=== PATIENT | female | born 1975 | race Asian ===

== ENCOUNTER 2023-06-07 22:33 | Emergency (ER) | payer OTHER, SELFPAY ==
[2023-06-07 22:34] VITALS: BP 122/77; PULSE 81; RESP 16; TEMP 36.2; O2SAT 100; BMI 28.1
--- NOTE | 2023-06-07 23:01 | EDS_ITS ---
HPI History of Present Illness Chief Complaint: Chest Pain Informant: patient and spouse/S.O. Narrative Narrative: 47-year-old female states she has been having midsternal chest pain for the past 4 weeks. She states she first noticed it after chiropractic treatment in which case she did some type of external rotation of her shoulder and seem to stretch the muscles in her back and maybe her chest a lot. She has noticed that pushing on her sternum is painful, moving her arm is more painful, but yet it feels like it is in the inside. Sometimes pain more painful to breathe. Sometimes feels out of breath. When she exerts herself she sometimes feels like things are worse and feels like her heart is pounding which is when she feels like she is a little out of breath. No near-syncope or syncope. No nausea, vomiting, diarrhea. She denies any palpitations other than stated above. No leg pain or swelling. No history of heart problems that she knows of, no history of PE or other thromboembolic disease. She denies any cough or recent illness. She st ates pretty much the pain has been there continuously for the past 4 weeks, when she takes aspirin it transiently improves, so she has been doing that more lately. She saw her doctor and had an EKG, said it was okay and then offered her a stress test but she declined at that time but today the pain was worse, but no other new symptoms today. [facility] Medical History (Updated 06/08/23 @ 00:[address] Rufus Munroe MD) Anxiety Gallstones Hiatal hernia Ovarian cyst Medical History no medical history Home Medications alprazolam 0.5 mg tablet 0.5 mg PO TID PRN anxiety 06/08/23 [History Last Taken Unknown] fluvoxamine 100 mg tablet 200 mg PO DAILY 06/08/23 [History Last Taken Unknown] Allergy/AdvReac Type Severity Reaction Status Date / Time No Known Allergies Allergy Verified 06/07/23 22:34 Social History Smoking Status: Never smoker ROS ROS ED Constitutional Constitutional ED: Denies chills or fever(s) Eyes Eyes: Denies change in vision or diplopia ENT ENT ED: Denies rhinorrhea or sore throat Cardiovascular Cardiovascular: Reports chest pain and pounding heartbeat; Denies leg edema, lightheadedness, orthopnea, palpitations, paroxysmal nocturnal dyspnea, radiating jaw, neck or arm pain or syncope Respiratory/Chest Respiratory/Chest: Reports dyspnea and dyspnea on exertion; Denies cough, orthopnea or paroxysmal nocturnal dyspnea Gastrointestinal Gastrointestinal: Denies abdominal pain, diarrhea, nausea or vomiting Genitourinary Genitourinary ED: Denies dysuria or hematuria Musculoskeletal Musculoskeletal: Denies back pain or neck pain Integumentary Denies abscess or rash Neurologic Neurologic: Denies headache(s), paresthesias or weakness Psychiatric Psychiatric: Denies anxiety or suicidal thoughts EXAM Physical Exam Const Vital Signs: 06/07/23 22:34 06/07/23 22:41 06/07/23 23:04 Temperature 97.1 F L Temperature Source Temporal Pulse Rate 81 Respiratory Rate 16 Respiratory Effort Short of Breath Blood Pressure 122/77 H Blood Pressure Mean 92 Pulse Ox 100 100 Oxygen Delivery Method Room Air 06/07/23 23:33 Temperature Temperature Source Pulse Rate 77 Respiratory Rate 20 H Respiratory Effort Blood Pressure 99/65 Blood Pressure Mean 76 Pulse Ox 99 Oxygen Delivery Method Positive well nourished and well developed General Appearance ED: well developed and NAD HEENT Reports moist mucous membranes normocephalic and atraumatic Eyes PERRL and EOMs intact bilaterally Neck full ROM and supple Chest Wall inspection of chest normal Chest: tenderness sternum (Mid sternal left costochondral junction, reproduces some of her pain) Resp normal respiratory effort and clear to auscultation bilaterally Cardio regular rate, regular rhythm and no murmurs GI non-tender and non-distended Auscultation: normoactive bowel sounds Palpation: soft Back/Spine no CVA tenderness General Back: other FROM Extremity normal to inspection General Extremety ED: Negative for edema, pulses abnormal or tenderness General Extremity: Negative for edema or pulses abnormal Neuro oriented x3, CN's II-XII intact bilaterally and no sensory deficits noted Sensorium / Orientation: awake and alert Motor Exam: strength 5/5 throughout Skin no rashes or lesions noted and no wounds Heart Score History: Slightly/Non-Suspicious ECG: Nonspecific Repolarization Age: >45 - <65 years Risk Factors: No Risk Factors Troponin: </= Normal Limit Score: 2 MDM MDM MDM Narrative Medical decision making narrative: Differential includes musculoskeletal etiologies, less likely to be pulmonary embolus, especially with a PERC score of 0 so no further work-up for pulmonary embolus is indicated emergently at this time for the symptoms, and less likely to be cardiac etiology since she has had pain every day for 1 month. Her EKG shows some nonspecific ST-T wave abnormalities in the inferolateral leads, her troponin however is in single digits, at 4, ruling out acute coronary syndrome at this time. The rest of her labs are only remarkable for mild anemia that is normocytic, this can be worked up as an outpatient if needed. Chest x-ray 2 views of my interpretation normal, radiology in agreement. She was given ibuprofen instructions for supportive care and follow-up. Lab Data Attestation: I reviewed the patient's lab results. Labs: Laboratory Results - last 24 hr 06/07/23 22:44 WBC 7.3 RBC 3.64 L Hgb 11.1 L Hct 34.7 L MCV 95.3 MCH 30.5 MCHC 32.0 RDW Std Deviation 42.4 RDW Coeff of Sam 12.0 Plt Count 297 MPV 9.4 Immature Gran % (Auto) 0.100 Neut % (Auto) 50.1 Lymph % (Auto) 41.9 H [place] % (Auto) 6.3 Eos % (Auto) 1.2 Baso % (Auto) 0.4 Absolute Neuts (auto) 3.6 Absolute Lymphs (auto) 3.04 Nucleated RBC % 0 Sodium 138 Potassium 3.7 Chloride 108 H Carbon Dioxide 27.0 Anion Gap 3 L BUN 16 Creatinine 0.82 Estim Creat Clear Calc 74.03 Est GFR (MDRD) Af Amer 96 Est GFR (MDRD) Non-Af 79 BUN/Creatinine Ratio 19.4 Glucose 98 Calcium 8.7 Troponin I High Sens 4 Radiography Diagnostic Testing: Clinical Impression(s) from Imaging Studies Chest X-Ray 06/07/23 23:10 IMPRESSION: Normal x-ray examination of the chest. Electronically Signed: Michael Suazo MD at 23:29 EDT , Rhythm Strip Rhythm Strip: Sinus Rhythm Rate: 77 Ectopy: None EKG Initial EKG: Attestation: I personally reviewed and interpreted this EKG as follows: Interpretation: Sinus Rhythm, No Acute Injury Pattern and Non-Specific ST Changes (inf-lat) Prior: No Prior Discharge Plan Triage Chief Complaint: Chest Pain ED Provider: Rufus Munroe Dx/Rx/DC Orders Clinical Impression: Anemia, normocytic normochromic, Chest pain, unspecified Instructions: ED Chest Pain, Noncardiac Prescriptions: No Action alprazolam 0.5 mg tablet 0.5 mg PO TID PRN (Reason: anxiety) Patient Comments: TAKE ONE TABLET BY MOUTH THREE TIMES DAILY fluvoxamine 100 mg tablet 200 mg PO DAILY Primary Care Provider: Navdeep Tarango Referrals: Navdeep Tarango MD [Primary Care Provider] - 1 Week if not improving Activity Restrictions/Additional Instructions: Consider taking Aleve or ibuprofen every day for the discomfort for the next week. Disposition Disposition: Home, Self Care
[2023-06-07 23:04] VITALS: O2SAT 100
--- NOTE | 2023-06-07 23:10 | RAD_ITS ---
STUDY: X-RAY CHEST REASON FOR EXAM: Female, 47 years old. chest pain TECHNIQUE: PA and lateral views of the chest. COMPARISON: None. FINDINGS: The lungs are clear and expanded. There is no demonstrated pleural abnormality. Normal size heart. Normal mediastinum and elvia. Normal visualized pulmonary arteries. Normal visualized aortic arch and descending thoracic aorta. There is a levoscoliosis of the thoracic spine. Normal visualized ribs, clavicles, and shoulders. There is no demonstrated abnormality of the visualized soft tissue structures of the upper abdomen. RAD/Chest PA and Lateral IMPRESSION: Normal x-ray examination of the chest. Electronically Signed: Michael Suazo MD at 23:29 EDT ,
[2023-06-07 23:13] LABS: Absolute Lymphocyte Count 3.04 X10^3/uL (0.83-4.51); Absolute Neutrophil Count 3.6 X10^3/uL (2.0-7.7); Basophil# 0.03 X10^3/uL; Basophil% 0.4 % (0-1); Eosinophil# 0.09 X10^3/uL; Eosinophils% 1.2 % (0-5); Hematocrit 34.7 % (37-47); Hemoglobin 11.1 g/dL (12.0-15.0); Lymphocyte # 3.04 X10^3/ul (0.83-4.51); Lymphocyte % 41.9 % (19-41); Mean Corpuscular Hgb 30.5 pg (27.0-32.0); Mean Corpuscular Volume 95.3 fL (81-99); Mean Platelet Vol. 9.4 fl (6.2-12.0); Monocyte# 0.46 X10^3/uL; Monocyte% 6.3 % (0-10); NRBC Flagged by Analyzer 0 % (0-5); Neutrophil # 3.62 X10^3/uL (2.7-7.7); Neutrophil % 50.1 % (47-70); Platelet Count 297 K/mm3 (150-450); RBC Distribution Width SD 42.4 fl (35.1-43.9); Red Blood Count 3.64 M/mm3 (4.2-5.4); White Blood Count 7.3 K/mm3 (4.4-11.0)
[2023-06-07 23:33] VITALS: BP 99/65; PULSE 77; RESP 20; O2SAT 99
[2023-06-07 23:34] LABS: Anion Gap 3 (5-15); BUN 16 mg/dL (7-18); BUN/Creat Ratio 19.4 RATIO (10-20); Calcium,Total 8.7 mg/dL (8.5-10.1); Chloride 108 mmol/L (98-107); Creatinine, Serum 0.82 mg/dL (0.55-1.02); EST Glomerular Filtration Rate 79 mL/min (>60); Est Glom Filt Rate - Afr Amer 96 mL/min (>60); Estimated Creatinine Clearance 74.03 ml/min; Glucose 98 mg/dL (74-106); Potassium 3.7 mmol/L (3.5-5.1); Sodium Level 138 mmol/L (136-145); Troponin-I HS 4 pg/mL (3.0-54.0)
[2023-06-08] VITALS: BP 104/66; PULSE 74; RESP 16; O2SAT 99
[2023-06-08] MEDS: Ibuprofen 600 MG Tablet PO (00:56)
[2023-06-08 00:59] VITALS: BP 104/66; PULSE 74; RESP 16; O2SAT 99
== END 2023-06-08 00:59 | disposition home or self-care (01) ==
PROVIDERS: Emergency Provider Emergency Medicine; PCP Family Medicine; Visit Provider Emergency Medicine
DX: D64.9 Anemia, unspecified (principal); R07.9 Chest pain, unspecified
CPT/HCPCS: 71046; 80048; 84484; 85025; 93005; 99284; A4216

== ENCOUNTER → 2024-08-21 | Outpatient (CLI) | payer OTHER, SELFPAY ==
--- NOTE | 2024-08-21 09:41 | NM_ITS ---
CLINICAL: 48-year-old female with history of presumed hydronephrosis. 99m Tc MAG3 DIURETIC RENAL SCINTIGRAPHY COMPARISON: None available FINDINGS: Following the intravenous administration of 10.7 mCi of 99m Tc MAG3, renal images reveal: 1. The flow study demonstrates relatively symmetric arterial phase distribution of the radiotracer 2. Immediate static delayed nephrogram images depict prompt and homogeneous radiopharmaceutical concentration by the renal parenchyma of both kidneys. Collecting structure visualization is identified in 4 minutes post tracer injection bilaterally. Washout of the radiopharmaceutical by the renal parenchyma appears qualitatively normal in both kidneys. There is spontaneous drainage of collecting system activity noted prior to furosemide administration. 3. The [id number] ratio of total renal parenchymal function was calculated to be 47/53. Furosemide 10 mg was administered intravenously. The post Lasix T ? washout of the bilateral collecting system activity was not calculated secondary to pre-furosemide collecting system near complete drainage. NM/Renal Scan w/ Pharm Intervent IMPRESSION: 1. There is preservation of bilateral renal parenchymal-cortical function. 2. Spontaneous drainage of the collecting system activity prior to diuretic administration negates the presence of significant mechanical and/or functional obstruction. Electronically Signed: Michael Ferguson DO at 11:18 EST ,
== END | disposition home or self-care (01) ==
PROVIDERS: PCP Family Medicine; Referring Provider Family Medicine; Visit Provider Family Medicine
DX: K55.1 Chronic vascular disorders of intestine (principal)
CPT/HCPCS: 78708; A9562; J1940